=== PATIENT | female | born 1970 | race Caucasian/White ===

== ENCOUNTER 2018-01-02 16:02 | Emergency (ER) | payer MEDICARE, MEDICAID ==
[2018-01-02] MEDS ORDERED: Ibuprofen 800 MG TAB ONE (17:30)
--- NOTE | 2018-01-02 19:24 | ULT ---
RIGHT UPPER EXTREMITY VENOUS ULTRASOUND WITH DOPPLER: HISTORY: Three weeks of right arm pain. COMPARISON: None. TECHNIQUE: Bolaños-scale, color-flow, Doppler imaging, and spectral wave-form analysis was performed to the right u pper extremity venous system. FINDINGS: There is compressibility and flow in the internal jugular vein. There is patency in the subclavian v ein. There is compressibility and flow in the axillary vein, basilic vein, cephalic vein, radial vei n, ulnar vein, and brachial vein. IMPRESSION: No evidence of thrombus in the right upper extremity deep venous system. POS: [facility]
== END 2018-01-02 18:37 | disposition home or self-care (01) ==
LOC: ERS 16:02
DX: M79.621 Pain in right upper arm (principal); E11.9 Type 2 diabetes mellitus without complications; E66.9 Obesity, unspecified; J45.909 Unspecified asthma, uncomplicated; F31.9 Bipolar disorder, unspecified; F41.9 Anxiety disorder, unspecified; I10 Essential (primary) hypertension

== ENCOUNTER 2018-05-25 08:42 | Outpatient (CLI) | payer MEDICARE, MEDICAID | END 2018-05-25 08:43 | disposition home or self-care (01) | LOC: BICMAMMO 08:42 | PROVIDERS: ATTEND Family Medicine | DX: Z12.31 Encounter for screening mammogram for malignant neoplasm of breast (principal); R92.1 Mammographic calcification found on diagnostic imaging of breast; Z80.3 Family history of malignant neoplasm of breast | CPT/HCPCS: 77063; 77067 ==

== ENCOUNTER 2018-09-22 19:58 | Emergency (ER) | payer MEDICARE, MEDICAID ==
[2018-09-22 21:01] LABS: #Basophils 0.1 thou/uL (0.0-0.2); #Eosinphils 0.2 thou/uL (0.0-0.7); #Lymphocytes 3.7 thou/uL (1.20-3.40); #Monocytes 0.4 thou/uL (0.11-0.59); #Neutrophils 3.3 thou/uL (1.40-6.50); %Basophils 0.7 % (0.0-1.0); %Eosinophils 2.2 % (0.0-10.0); %Lymphocytes 48.2 % (21.0-51.0); %Monocytes 5.3 % (0.0-10.0); %Neutrophils 43.6 % (42.0-75.0); Hemoglobin 13.9 g/dL (12.0-16.0); Mean Corpuscular HGB CONC 33.4 g/dL (32.0-36.0); Mean Corpuscular Hemoglobin 28.7 pg (27.0-31.0); Mean Corpuscular Volume 85.9 fL (78.0-98.0); Platelet Count 317 thou/uL (130-400); Red Blood Cell (RBC) Count 4.83 mill/uL (4.20-5.40); White Blood Cell (WBC) Count 7.6 thou/uL (4.8-10.8)
[2018-09-22 21:30] LABS: ALT (SGPT) 17 U/L (8-55); AST (SGOT) 12 U/L (5-34); Albumin 3.8 g/dL (3.5-5.0); Alkaline Phosphatase 83 U/L (40-150); Anion Gap 14 mmol/L (10-20); BUN (Urea Nitrogen) 10 mg/dL (7.0-18.7); Bilirubin, Total 0.6 mg/dL (0.2-1.2); Calc. Creatinine Clearance 0 mL/min (70-130); Calcium 9.9 mg/dL (7.8-10.44); Carbon Dioxide 27 mmol/L (22-29); Chloride 104 mmol/L (98-107); Estimated GFR-MDRD Greater than 90; Globulin 3.6 g/dL (2.4-3.5); Glucose 112 mg/dL (70-105); Potassium 3.9 mmol/L (3.5-5.1); Protein, Total 7.4 g/dL (6.0-8.3); Sodium 141 mmol/L (136-145)
[2018-09-22 23:10] LABS: Bilirubin Negative (Negative); Blood, Urine Negative (Negative); Clarity CLOUDY (Clear); Glucose, Urine (Dipstick) Negative (Negative); Leukocyte Moderate (Negative); Nitrite Negative (Negative); Protein, Urine (Dipstick) Negative (Neg-Trace); Urobilinogen 0.2 mg/dL (0.2-1.0)
[2018-09-22 23:12] LABS: Bacteria/HPF None Seen HPF (None Seen); Hyaline Casts/LPF 7-10 HYALINE CAST LPF (0-3 Hyaline); Pathc Cast-AUWi Flag 2.18 (0-2.49)
== END 2018-09-23 00:10 | disposition home or self-care (01) ==
LOC: ERS 19:58
DX: E11.649 Type 2 diabetes mellitus with hypoglycemia without coma (principal); J45.909 Unspecified asthma, uncomplicated; F31.9 Bipolar disorder, unspecified; F41.9 Anxiety disorder, unspecified; E66.9 Obesity, unspecified; Z79.899 Other long term (current) drug therapy; Z79.84 Long term (current) use of oral hypoglycemic drugs
CPT/HCPCS: 36415; 36416; 80053; 81003; 81015; 85025; 99284

== ENCOUNTER 2018-10-31 13:16 | Emergency (ER) | payer MEDICARE, MEDICAID ==
[~2018-10-31 13:16] MED LIST: ISOVUE-370 76%-LOCM 1 ML ONE
[2018-10-31 14:07] LABS: #Eosinphils 0.1 thou/uL (0.0-0.7); #Lymphocytes 1.6 thou/uL (1.20-3.40); #Monocytes 0.3 thou/uL (0.11-0.59); #Neutrophils 6.3 thou/uL (1.40-6.50); %Basophils 0.3 % (0.0-1.0); %Eosinophils 1.1 % (0.0-10.0); %Lymphocytes 19.2 % (21.0-51.0); %Monocytes 3.5 % (0.0-10.0); %Neutrophils 75.9 % (42.0-75.0); Hemoglobin 14.4 g/dL (12.0-16.0); Mean Corpuscular HGB CONC 32.9 g/dL (32.0-36.0); Mean Corpuscular Hemoglobin 29.1 pg (27.0-31.0); Mean Corpuscular Volume 88.5 fL (78.0-98.0); Mean Platelet Volume 8.5 fL (7.4-10.4); Platelet Count 333 thou/uL (130-400); RBC Distribution Width 12.3 % (11.5-14.5); Red Blood Cell (RBC) Count 4.94 mill/uL (4.20-5.40); White Blood Cell (WBC) Count 8.2 thou/uL (4.8-10.8)
[2018-10-31 14:34] LABS: ALT (SGPT) 15 U/L (8-55); AST (SGOT) 10 U/L (5-34); Albumin 3.7 g/dL (3.5-5.0); Alkaline Phosphatase 87 U/L (40-150); Anion Gap 13 mmol/L (10-20); BUN (Urea Nitrogen) 15 mg/dL (7.0-18.7); Bilirubin, Total 0.7 mg/dL (0.2-1.2); Calc. Creatinine Clearance 0 mL/min (70-130); Calcium 8.9 mg/dL (7.8-10.44); Carbon Dioxide 22 mmol/L (22-29); Chloride 106 mmol/L (98-107); Estimated GFR-MDRD Greater than 90; Globulin 3.3 g/dL (2.4-3.5); Glucose 184 mg/dL (70-105); Sodium 137 mmol/L (136-145)
[2018-10-31] MEDS ORDERED: Ondansetron ODT 4 MG TAB ONE (16:10)
[2018-10-31 16:24] LABS: Bilirubin Negative (Negative); Blood, Urine Negative (Negative); Clarity CLEAR (Clear); Glucose, Urine (Dipstick) 100 mg/dL (Negative); Leukocyte Negative (Negative); Nitrite Negative (Negative); Protein, Urine (Dipstick) Negative (Neg-Trace)
[2018-10-31 16:27] LABS: Pregnancy Test - Urine (BHCG) Negative (Negative); Pregu Control Background? CLEAR/WHITE (CLR/WHITE); Pregu Control Bar Appear? YES (CONTROL BAR)
[2018-10-31] MEDS ORDERED: Ondansetron PF 4 MG/2 ML Vial ONE (17:00)
[2018-10-31] MEDS ORDERED: Ketorolac Tromethamine 30 MG/ML VIAL ONE (17:30)
--- NOTE | 2018-10-31 17:36 | CT ---
CT ABDOMEN AND PELVIS WITH IV CONTRAST 10/31/18 HISTORY: Nausea, vomiting and diarrhea in a patient with left lower quadrant abdominal pain. COMPARISON: None available. FINDINGS: The lung bases, liver, spleen, pancreas, bilateral adrenal glands, kidneys, abdominal aorta, urinary bladder, uterus and left adnexal structures demonstrate a normal CT appearance. A few low density str uctures are seen within the right ovary. The largest measuring approximately 2.2 cm likely related to dominant follicles and/or small cysts. The appendix is visualized and normal caliber. There is stranding seen in the region of the root of the mesentery which is with few nonenlarged lym ph nodes present. 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 No enlarged lymph nodes are seen by CT size criteria. There is no free fluid or fluid collection seen in the abdomen or pelvis. The osseous structures demonstrate a normal CT appearance. IMPRESSION: 1. No acute findings are seen in the abdomen or pelvis. 2. No CT evidence of appendicitis. 3. Mild haziness and stranding within the central mesentery which could potentially be attributa ble to mesenteric panniculitis. 4. Dominant follicles and/or small cysts right ovary. POS: [facility]
--- NOTE | 2018-11-04 15:32 | EKG ---
Test Reason : Blood Pressure : / mmHG Vent. Rate : 092 BPM Atrial Rate : 092 BPM P-R Int : 166 ms QRS Dur : 082 ms QT Int : 350 ms P-R-T Axes : 040 -12 022 degrees QTc Int : 432 ms Normal sinus rhythm Low voltage QRS Septal infarct , age undetermined No STEMI Abnormal ECG Confirmed by YEVGENIY Willis, JULIA ([id number]), newspaper editor AKANKSHA TYSON ([id number]) on 11/04/2018 3:31:49 PM Referred By: Confirmed By:JULIA VUONG M.D.
== END 2018-10-31 17:57 | disposition home or self-care (01) ==
LOC: ERS 13:16
DX: K65.4 Sclerosing mesenteritis (principal); N83.201 Unspecified ovarian cyst, right side; E11.9 Type 2 diabetes mellitus without complications; E66.9 Obesity, unspecified; J45.909 Unspecified asthma, uncomplicated; F31.9 Bipolar disorder, unspecified; F41.9 Anxiety disorder, unspecified; Z79.84 Long term (current) use of oral hypoglycemic drugs; Z79.899 Other long term (current) drug therapy
CPT/HCPCS: 36415; 36416; 74177; 80053; 81003; 81025; 83690; 85025; 93005; 96361; 96374; 96375; J1885; J2405; Q0162; Q9966

== ENCOUNTER 2018-11-13 10:37 | Outpatient (CLI) | payer MEDICARE, OTHER ==
--- NOTE | 2018-11-13 12:39 | ULT ---
PELVIC ULTRASOUND WITH DOPPLER TRANSABDOMINAL AND TRANSVAGINAL: 11/13/2018 PROVIDED CLINICAL HISTORY: Right lower quadrant pain. CORRELATION: CT examination dated 10/31/2018. FINDINGS: The uterus measures about 11.1 x 4.1 x 4.2 cm and demonstrates an unremarkable sonographic appearance to the uterine myometrium. There is endometrial thickening measuring up to 1.8 cm with a somewhat h eterogeneous appearance to the contents of the uterine endometrium. The right ovary measures about 3.4 x 2.7 x 2.2 cm and demonstrates a simple appearing 2.1 cm cyst. The left ovary is not identified. Color Doppler and spectral analysis of the right ovarian waveform demonstrates normal flow. There is no evidence for significant free pelvic fluid. IMPRESSION: 1. Thickened and somewhat heterogeneous appearance to the uterine endometrium. This is overall nons pecific, particularly in a premenopausal patient. Consider sonohysterography or tissue sampling, as clinically indicated. 2. A 2 cm simple-appearing right ovarian cyst, presumably physiologic. POS: [facility]
== END 2018-11-13 10:38 | disposition home or self-care (01) ==
LOC: BICULT 10:37
PROVIDERS: ATTEND Family Medicine
DX: N83.291 Other ovarian cyst, right side (principal); R93.89 Abnormal findings on diagnostic imaging of other specified body structures
CPT/HCPCS: 76856

== ENCOUNTER 2018-12-26 10:30 | Emergency (ER) | payer MEDICARE, OTHER | END 2018-12-26 12:15 | disposition home or self-care (01) | LOC: ERS 10:30 | DX: J04.0 Acute laryngitis (principal); E11.9 Type 2 diabetes mellitus without complications; E66.9 Obesity, unspecified; J45.909 Unspecified asthma, uncomplicated; F41.9 Anxiety disorder, unspecified; F31.9 Bipolar disorder, unspecified; Z79.899 Other long term (current) drug therapy; Z79.84 Long term (current) use of oral hypoglycemic drugs | CPT/HCPCS: 87081; 87430; 99283 ==

== ENCOUNTER 2019-05-11 11:03 | Outpatient (CLI) | payer MEDICARE, OTHER ==
--- NOTE | 2019-05-11 12:14 | MRI ---
MR of the rightankle without contrast INDICATION: Concern for calcaneofibular ligament sprain TECHNIQUE: T1, T2 fat sat, PD fat sat axial in addition to sagittal T1, T2 fat sat and coronal PD fat sat sequences were obtained of the rightankle. COMPARISON: Right ankle radiograph dated May 07, 2019 FINDINGS: Ligaments: ATFL: There is diffuse thickening suspicious for a chronic partial thickness tear. PTFL: Intact. Calcaneofibular ligament: There is moderate thickening of the calcaneal fibular ligament suspicious f or sequela of a chronic partial thickness sprain. Syndesmotic ligaments: Intact. Deltoid ligament: Intact. Spring ligament: Intact. Visualized Lisfranc ligament: Intact. Tendons: Peroneal tendons: There is a partial-thickness split tear of the peroneus brevis originating posterio r to the lateral malleolus reconstituting just distal to the lateral retinaculum. The peroneus longus is intact. There is mild peroneal tenosynovitis. Posterior tibialis: Intact without tenosynovitis. Flexor digitorum longus: Intact without tenosynovitis. Flexor hallucis longus: Intact without tenosynovitis. Extensor hallucis longus: Intact without tenosynovitis. Tibialis anterior: Intact without tenosynovitis. Extensor digitorum longus: Intact without tenosynovitis. Achilles tendon There is mild Achilles tendinosis with mild Achilles paratenonitis. Tibiotalar joint: Talar Dome: Intact without evidence of osteochondral defect Joint effusion: None. Subtalar joint: Intact. Bones: There is enthesopathic change off of the posterior plantar calcaneus. There are scattered oste oarthrosis of the right midfoot. Sinus Tarsi: Normal signal intensity. Plantar fascia: Normal appearing. Visualized intrinsic foot musculature: Normal appearing.. IMPRESSION: 1. Partial-thickness split tear of the peroneal brevis with peroneal tenosynovitis. 2. Chronic partial-thickness sprain of the ATFL and calcaneofibular ligaments. 3. Mild Achilles tendinosis with mild Achilles paratenonitis.
== END 2019-05-11 11:04 | disposition home or self-care (01) ==
LOC: TBSIIMAG 11:03
PROVIDERS: ATTEND Family Medicine
DX: S93.411A Sprain of calcaneofibular ligament of right ankle, initial encounter (principal); M67.873 Other specified disorders of tendon, right ankle and foot

== ENCOUNTER 2019-11-08 08:36 | Emergency (ER) | payer MEDICARE, OTHER ==
--- NOTE | 2019-11-08 09:07 | RAD ---
EXAM: CHEST ONE VIEW HISTORY: Dyspnea. Shortness of breath for 3 days. COMPARISON: 06/30/2014 FINDINGS: The cardiac silhouette and pulmonary vasculature is within normal limits. The lungs are clear. The os seous structures are intact. Chest is stable compared to prior exam. IMPRESSION: No acute cardiopulmonary process.
[2019-11-08] MEDS ORDERED: predniSONE 20 MG TAB ONE (09:08)
[2019-11-08 09:32] LABS: #Basophils 0.1 thou/uL (0.0-0.2); #Eosinphils 0.3 thou/uL (0.0-0.7); #Lymphocytes 2.8 thou/uL (1.20-3.40); #Monocytes 0.4 thou/uL (0.11-0.59); #Neutrophils 3.7 thou/uL (1.40-6.50); %Basophils 1.2 % (0.0-1.0); %Eosinophils 4.3 % (0.0-10.0); %Lymphocytes 38.5 % (21.0-51.0); %Monocytes 5.6 % (0.0-10.0); %Neutrophils 50.5 % (42.0-75.0); BHCG - Serum Negative (NEGATIVE); Mean Corpuscular HGB CONC 33.6 g/dL (32.0-36.0); Mean Corpuscular Hemoglobin 29.2 pg (27.0-31.0); Mean Corpuscular Volume 86.9 fL (78.0-98.0); Mean Platelet Volume 9.3 fL (7.4-10.4); Platelet Count 259 thou/uL (130-400); Pregs Control Background? CLEAR/WHITE (CLR/WHITE); Pregs Control Bar Appear? YES (CONTROL BAR); RBC Distribution Width 13.2 % (11.5-14.5); White Blood Cell (WBC) Count 7.3 thou/uL (4.8-10.8)
[2019-11-08 09:55] LABS: ALT (SGPT) 19 U/L (8-55); AST (SGOT) 10 U/L (5-34); Albumin 3.8 g/dL (3.5-5.0); Alkaline Phosphatase 92 U/L (40-110); Anion Gap 14 mmol/L (10-20); BUN (Urea Nitrogen) 11 mg/dL (7.0-18.7); Bilirubin, Total 0.4 mg/dL (0.2-1.2); Calc. Creatinine Clearance 0 mL/min (70-130); Calcium 9.4 mg/dL (7.8-10.44); Carbon Dioxide 22 mmol/L (22-29); Chloride 102 mmol/L (98-107); Estimated GFR-MDRD 88; Globulin 3.7 g/dL (2.4-3.5); Glucose 339 mg/dL (70-105); Protein, Total 7.5 g/dL (6.0-8.3); Sodium 134 mmol/L (136-145)
== END 2019-11-08 11:00 | disposition home or self-care (01) ==
LOC: ERS 08:36
DX: J20.9 Acute bronchitis, unspecified (principal); E11.9 Type 2 diabetes mellitus without complications; E66.9 Obesity, unspecified; J45.909 Unspecified asthma, uncomplicated; F31.9 Bipolar disorder, unspecified; F41.9 Anxiety disorder, unspecified
CPT/HCPCS: 36415; 71045; 80053; 84484; 84703; 85025; 93005; 94640; J7512; J7620

== ENCOUNTER 2021-08-10 07:06 | Emergency (ER) | payer MEDICARE, OTHER | END 2021-08-10 07:28 | disposition home or self-care (01) | LOC: ERS 07:06 | DX: M25.531 Pain in right wrist (principal); E11.9 Type 2 diabetes mellitus without complications; J45.909 Unspecified asthma, uncomplicated; E66.9 Obesity, unspecified | CPT/HCPCS: 99281 ==

== ENCOUNTER 2021-08-24 07:34 | Outpatient (CLI) | payer MEDICARE, OTHER | END 2021-08-24 07:35 | disposition home or self-care (01) | LOC: BICRAD 07:34 | PROVIDERS: ATTEND Student in an Organized Health Care Education/Training Program | DX: M25.531 Pain in right wrist (principal) ==

== ENCOUNTER 2021-11-02 19:30 | Emergency (ER) | payer MEDICARE, OTHER ==
[2021-11-02] MEDS ORDERED: Ketorolac Tromethamine 30 MG/ML VIAL ONE (20:01)
[2021-11-02] MEDS ORDERED: Morphine 4 MG/ML VIAL ONE (20:01)
== END 2021-11-02 20:40 | disposition home or self-care (01) ==
LOC: ERS 19:30
DX: M54.41 Lumbago with sciatica, right side (principal); E11.9 Type 2 diabetes mellitus without complications; Z79.899 Other long term (current) drug therapy
CPT/HCPCS: 96372; 99283; J1885; J2270

== ENCOUNTER 2022-07-10 03:19 | Inpatient (IN) | payer OTHER ==
[2022-07-10] MEDS ORDERED: Vancomycin 1 GM/200 ML (PREMIX) BAG ONE (03:44)
[2022-07-10] MEDS ORDERED: Cefepime 2 GM VIAL ONE (03:44)
[2022-07-10 04:03] LABS: Hemoglobin 13.8 g/dL (12.0-16.0); Mean Corpuscular Hemoglobin 28.6 pg (27.0-31.0); Mean Corpuscular Volume 92.1 fl (78.0-98.0); Mean Platelet Volume 8.5 fL (7.4-10.4); Platelet Count 454 thou/uL (130-400); RBC Distribution Width 12.7 % (11.5-14.5); Red Blood Cell (RBC) Count 4.85 mill/uL (4.20-5.40); White Blood Cell (WBC) Count 23.6 thou/uL (4.8-10.8)
[2022-07-10 04:12] LABS: Analyzer IN Cardio ER; Base Excess -23.2 mEq/L (-2.0 to +3.0); Calcium, Ionized (venous) 1.21 mmol/L (1.16-1.32); Chloride (VBG) 105 mmol/L (98-106); Sodium 132.6 mmol/L (133-146)
[2022-07-10 04:13] LABS: pH (venous) 7.03 (7.32-7.43)
[2022-07-10 04:14] LABS: Actual Bicarbonate (HCO3v) 6 mEq/L (22-28)
[2022-07-10 04:16] LABS: ALT (SGPT) 16 U/L (8-55); AST (SGOT) 15 U/L (5-34); Albumin 3.8 g/dL (3.5-5.0); Alkaline Phosphatase 141 U/L (40-110); BUN (Urea Nitrogen) 8 mg/dL (7.0-18.7); Bilirubin, Total 0.4 mg/dL (0.2-1.2); Calc. Creatinine Clearance 0 mL/min (70-130); Calcium 10.2 mg/dL (7.8-10.44); Chloride 105 mmol/L (98-107); Estimated GFR 69; Globulin 5.5 g/dL (2.4-3.5); Glucose 274 mg/dL (70-105); Potassium 4.2 mmol/L (3.5-5.1); Protein, Total 9.3 g/dL (6.0-8.3); Sodium 131 mmol/L (136-145)
[2022-07-10 04:22] LABS: Carbon Dioxide Less than 8 mmol/L (22-29)
[2022-07-10 04:38] LABS: Band 12 % (5-11); Lymphocytes 22 % (21-51); MDiff Complete? YES; Monocytes 4 % (0-10); Neutrophil 59 % (42-75); Nucleated RBC 1 % (0); Platelet Morphology Comment Appears Increased; RBC Morphology Normal; Reactive Lymphocytes 3 % (0-10)
[2022-07-10] MEDS ORDERED: INSULIN REGULAR IN 0.9 % NACL 100 UNIT/100 ML BAG ONE (04:42)
[2022-07-10] MEDS ORDERED: Ondansetron PF 4 MG/2 ML Vial ONE (04:48)
[2022-07-10] MEDS ORDERED: Morphine 4 MG/ML VIAL ONE (04:48)
[2022-07-10 05:18] LABS: Magnesium 2.1 mg/dL (1.6-2.6); Phosphorus 4.5 mg/dL (2.3-4.7)
[2022-07-10 06:31] LABS: Actual Bicarbonate (HCO3v) 6 mEq/L (22-28); Analyzer IN Cardio ER; Base Excess -23.2 mEq/L (-2.0 to +3.0); Calcium, Ionized (venous) 1.21 mmol/L (1.16-1.32); Chloride (VBG) 105 mmol/L (98-106); Sodium 132.6 mmol/L (133-146); pH (venous) 7.03 (7.32-7.43)
[2022-07-10] MEDS ORDERED: NS 0.9% w/ 20 MEQ KCL 1,000 ML ONE (06:56)
[2022-07-10 07:31] LABS: Bacteria/HPF None Seen HPF (None Seen); Bilirubin Negative (Negative); Blood, Urine 3+ (Negative); Clarity Clear (Clear); Glucose, Urine (Dipstick) Greater than 1000 mg/dL (Negative); Ketone, Urine Greater than 150 mg/dL (Negative); Leukocyte 250 Leu/uL (Negative); Nitrite Negative (Negative); Protein, Urine (Dipstick) 30 mg/dL (Neg-Trace); Specific Gravity, Urine 1.039 (1.002-1.036); Urobilinogen Normal mg/dL (Less than 2)
[2022-07-10] MEDS ORDERED: Sodium Chloride 0.9% 1,000 ML IV PRN ×4 (08:31)
[2022-07-10] MEDS ORDERED: Dextrose 5 %-0.45 % NaCl 1,000 ML IV PRN (08:31)
[2022-07-10] MEDS ORDERED: NS 0.9% w/ 20 MEQ KCL 1,000 ML IV PRN ×2 (08:31)
[2022-07-10] MEDS ORDERED: HUMULIN R 100 UNITS in Sodium Chloride 0.9% 100 ML IVPB SCH (08:45)
[2022-07-10] MEDS ORDERED: Cefepime 1 GM in Sodium Chloride 0.9% 100 ML IVPB SCH (09:00)
[2022-07-10] MEDS ORDERED: Vancomycin 1 GM in Premix Bag 1 BAG IVPB SCH (09:00)
[2022-07-10] MEDS ORDERED: Bupivacaine/Epinephrine 0.25% 30 ML VIAL ONE (10:01)
[2022-07-10] MEDS ORDERED: SUGAMMADEX SODIUM 200 MG/2 ML VIAL ONE (10:09)
[2022-07-10] MEDS ORDERED: fentaNYL PF 100 MCG/2 ML SYRINGE ONE (10:09)
[2022-07-10] MEDS ORDERED: Iopamidol-370 76% 500 ML 1 ML ONE (10:30)
[2022-07-10] MEDS ORDERED: PROPOFOL 200 MG/20 ML VIAL ONE (11:07)
[2022-07-10] MEDS ORDERED: Succinylcholine 200 MG/10 ml SYRINGE FS ONE (11:07)
[2022-07-10] MEDS ORDERED: Rocuronium Bromide 10 MG/ML (10ML VIAL) ONE (11:07)
[2022-07-10] MEDS ORDERED: Promethazine HCl 25 MG/ML VIAL IVPB PRN (11:49)
[2022-07-10] MEDS ORDERED: Ondansetron HCl/PF 4 MG/2 ML Vial IVP PRN (11:49)
[2022-07-10] MEDS ORDERED: Promethazine HCl 25 MG/ML VIAL IM PRN (11:49)
[2022-07-10] MEDS ORDERED: HYDROcodone/Acetaminophen 7.5/325 mg Tablet PO PRN (11:58)
[2022-07-10] MEDS ORDERED: FENTANYL 50 MCG/ML 1 ML VIAL ONE (12:15)
[2022-07-10] MEDS: Electrolyte Replacement Protocol IVPB SCH (13:15)
[2022-07-10] MEDS: Morphine 4 MG/ML VIAL SLOW IVP PRN (13:24)
[2022-07-10] MEDS ORDERED: Vancomycin 1.5 GRAM/300 ML BAG 1.5 GM in Premix Bag 1 BAG IVPB SCH (13:30)
[2022-07-10] MEDS: metroNIDAZOLE 500 MG in Premix Bag 1 BAG IVPB SCH ×2 (13:42→22:30)
[2022-07-10 13:44] LABS: BUN (Urea Nitrogen) 8 mg/dL (7.0-18.7); Calc. Creatinine Clearance 139 mL/min (70-130); Calcium 9.7 mg/dL (7.8-10.44); Chloride 111 mmol/L (98-107); Estimated GFR 90; Glucose 238 mg/dL (70-105); Potassium 4.6 mmol/L (3.5-5.1); Sodium 133 mmol/L (136-145)
[2022-07-10 13:57] LABS: Carbon Dioxide Less than 8 mmol/L (22-29)
[2022-07-10] MEDS: D5 1/2 NS w/20 mEq KCL 1,000 ML IV PRN ×2 (14:48→22:56)
[2022-07-10] MEDS: Cefepime 2 GM in Sodium Chloride 0.9% 100 ML IVPB SCH (16:52)
[2022-07-10 17:40] LABS: Anion Gap 13 mmol/L (10-20); BUN (Urea Nitrogen) 7 mg/dL (7.0-18.7); Calc. Creatinine Clearance 153 mL/min (70-130); Calcium 8.8 mg/dL (7.8-10.44); Chloride 115 mmol/L (98-107); Estimated GFR 100; Glucose 249 mg/dL (70-105); Potassium 3.8 mmol/L (3.5-5.1); Sodium 133 mmol/L (136-145)
[2022-07-10 17:44] LABS: Carbon Dioxide 9 mmol/L (22-29)
[2022-07-10 22:05] LABS: Anion Gap 11 mmol/L (10-20); BUN (Urea Nitrogen) 7 mg/dL (7.0-18.7); Calc. Creatinine Clearance 145 mL/min (70-130); Calcium 8.7 mg/dL (7.8-10.44); Carbon Dioxide 14 mmol/L (22-29); Chloride 113 mmol/L (98-107); Estimated GFR 94; Glucose 255 mg/dL (70-105); Potassium 3.6 mmol/L (3.5-5.1); Sodium 134 mmol/L (136-145)
[2022-07-11] MEDS: HYDROcodone/Acetaminophen 7.5/325 mg Tablet PO PRN ×2 (00:31→22:53)
[2022-07-11] MEDS: D5 1/2 NS w/20 mEq KCL 1,000 ML IV PRN ×4 (03:30→16:05)
[2022-07-11] MEDS: Cefepime 2 GM in Sodium Chloride 0.9% 100 ML IVPB SCH ×2 (03:36→17:47)
[2022-07-11 04:27] LABS: Anion Gap 10 mmol/L (10-20); BUN (Urea Nitrogen) 5 mg/dL (7.0-18.7); Calc. Creatinine Clearance 186 mL/min (70-130); Calcium 8.3 mg/dL (7.8-10.44); Carbon Dioxide 13 mmol/L (22-29); Chloride 115 mmol/L (98-107); Estimated GFR 109; Glucose 168 mg/dL (70-105); Potassium 3.4 mmol/L (3.5-5.1); Sodium 135 mmol/L (136-145)
[2022-07-11] MEDS: metroNIDAZOLE 500 MG in Premix Bag 1 BAG IVPB SCH ×3 (06:41→22:51)
[2022-07-11] MEDS: Potassium Chloride 20 MEQ in Premix Bag 1 BAG IVPB SCH ×2 (06:57→09:28)
[2022-07-11] MEDS: Morphine 4 MG/ML VIAL SLOW IVP PRN ×2 (07:34→10:12)
[2022-07-11 08:43] LABS: #Basophils 0.1 thou/uL (0.0-0.2); #Eosinphils 0.1 thou/uL (0.0-0.7); #Lymphocytes 1.7 thou/uL (1.20-3.40); #Monocytes 0.6 thou/uL (0.11-0.59); #Neutrophils 10.1 thou/uL (1.40-6.50); %Basophils 0.5 % (0.0-1.0); %Lymphocytes 13.2 % (21.0-51.0); %Monocytes 4.4 % (0.0-10.0); %Neutrophils 80.8 % (42.0-75.0); Hemoglobin 11.5 g/dL (12.0-16.0); Mean Corpuscular HGB CONC 32.5 g/dL (32.0-36.0); Mean Corpuscular Hemoglobin 29.8 pg (27.0-31.0); Mean Corpuscular Volume 91.7 fl (78.0-98.0); Mean Platelet Volume 7.8 fL (7.4-10.4); Platelet Count 349 thou/uL (130-400); RBC Distribution Width 12.8 % (11.5-14.5); Red Blood Cell (RBC) Count 3.87 mill/uL (4.20-5.40); White Blood Cell (WBC) Count 12.6 thou/uL (4.8-10.8)
[2022-07-11 08:48] LABS: Anion Gap 11 mmol/L (10-20); BUN (Urea Nitrogen) 4 mg/dL (7.0-18.7); Calc. Creatinine Clearance 190 mL/min (70-130); Calcium 8.2 mg/dL (7.8-10.44); Carbon Dioxide 12 mmol/L (22-29); Chloride 114 mmol/L (98-107); Estimated GFR 109; Glucose 197 mg/dL (70-105); Potassium 3.9 mmol/L (3.5-5.1); Sodium 133 mmol/L (136-145)
[2022-07-11] MEDS ORDERED: FLU VACC QS2022-23(6MOS UP)/PF 60 MCG/0.5 ML SYRINGE IM ONE (09:00)
[2022-07-11] MEDS: Electrolyte Replacement Protocol IVPB SCH (09:19)
[2022-07-11] MEDS: VANCOMYCIN 2 GRAM/500 ML BAG 2 GM in Premix Bag 1 BAG IVPB SCH (13:56)
[2022-07-11] MEDS: guaiFENesin 200 MG TAB PO PRN (14:06)
[2022-07-11 15:06] LABS: Anion Gap 12 mmol/L (10-20); BUN (Urea Nitrogen) 5 mg/dL (7.0-18.7); Calc. Creatinine Clearance 193 mL/min (70-130); Calcium 8.2 mg/dL (7.8-10.44); Carbon Dioxide 12 mmol/L (22-29); Chloride 112 mmol/L (98-107); Estimated GFR 109; Glucose 283 mg/dL (70-105); Potassium 3.8 mmol/L (3.5-5.1); Sodium 132 mmol/L (136-145)
[2022-07-11] MEDS ORDERED: Dextrose 50% Abboject 50 ML SYRINGE SLOW IVP PRN (17:33)
[2022-07-11] MEDS ORDERED: Dextrose 5% in Water 1,000 ML IV PRN (17:33)
[2022-07-11] MEDS ORDERED: Insulin Glargine 30 UNITS/0.3 ML VIAL SC SCH (17:45)
[2022-07-11] MEDS: Sodium Chloride 0.9% 1,000 ML IV SCH (18:42)
[2022-07-11] MEDS: HumaLOG 300 UNITS/3 ML VIAL SC PRN (22:55)
[2022-07-12 04:11] LABS: Anion Gap 13 mmol/L (10-20); BUN (Urea Nitrogen) 4 mg/dL (7.0-18.7); Calc. Creatinine Clearance 196 mL/min (70-130); Calcium 8.6 mg/dL (7.8-10.44); Carbon Dioxide 14 mmol/L (22-29); Chloride 114 mmol/L (98-107); Estimated GFR 110; Glucose 215 mg/dL (70-105); Potassium 3.6 mmol/L (3.5-5.1); Sodium 137 mmol/L (136-145)
[2022-07-12] MEDS: Cefepime 2 GM in Sodium Chloride 0.9% 100 ML IVPB SCH ×2 (04:12→15:43)
[2022-07-12 04:20] LABS: Band 8 % (5-11); Eosinophils 1 % (0-10); Hemoglobin 11.2 g/dL (12.0-16.0); Hypochromia SLIGHT = 6-15 cells (100X) (0-5/hpf); Lymphocytes 32 % (21-51); MDiff Complete? YES; Mean Corpuscular HGB CONC 31.8 g/dL (32.0-36.0); Mean Corpuscular Hemoglobin 28.5 pg (27.0-31.0); Mean Corpuscular Volume 89.5 fl (78.0-98.0); Monocytes 5 % (0-10); Neutrophil 53 % (42-75); Platelet Count 342 thou/uL (130-400); Platelet Morphology Comment Appears Adequate; RBC Distribution Width 13.1 % (11.5-14.5); Reactive Lymphocytes 1 % (0-10); Red Blood Cell (RBC) Count 3.95 mill/uL (4.20-5.40); White Blood Cell (WBC) Count 11.4 thou/uL (4.8-10.8)
[2022-07-12] MEDS: HumaLOG 300 UNITS/3 ML VIAL SC PRN ×2 (06:20→14:05)
[2022-07-12] MEDS: metroNIDAZOLE 500 MG in Premix Bag 1 BAG IVPB SCH ×3 (06:20→21:07)
[2022-07-12] MEDS: Electrolyte Replacement Protocol IVPB SCH (09:33)
[2022-07-12] MEDS: Sodium Chloride 0.9% 1,000 ML IV SCH (09:33)
[2022-07-12] MEDS: guaiFENesin 200 MG TAB PO PRN (09:54)
[2022-07-12] MEDS: Morphine 4 MG/ML VIAL SLOW IVP PRN (12:10)
[2022-07-12] MEDS: Ondansetron PF 4 MG/2 ML Vial IVP PRN (12:17)
[2022-07-12 13:45] LABS: Vancomycin, Trough 4.4 ug/mL
[2022-07-12] MEDS: VANCOMYCIN 2 GRAM/500 ML BAG 2 GM in Premix Bag 1 BAG IVPB SCH (14:36)
[2022-07-12] MEDS: VANCOMYCIN 1.75 GM/500 ML BAG 1.75 GM in Premix Bag 1 BAG IVPB SCH (15:43)
[2022-07-12] MEDS ORDERED: Insulin Glargine 30 UNITS/0.3 ML VIAL SC SCH ×2 (21:00)
[2022-07-12] MEDS: HYDROcodone/Acetaminophen 7.5/325 mg Tablet PO PRN (21:08)
[2022-07-13] MEDS: VANCOMYCIN 1.75 GM/500 ML BAG 1.75 GM in Premix Bag 1 BAG IVPB SCH ×2 (03:09→17:39)
[2022-07-13] MEDS: Cefepime 2 GM in Sodium Chloride 0.9% 100 ML IVPB SCH ×2 (05:17→15:08)
[2022-07-13] MEDS: HumaLOG 300 UNITS/3 ML VIAL SC PRN ×4 (05:17→21:24)
[2022-07-13] MEDS: metroNIDAZOLE 500 MG in Premix Bag 1 BAG IVPB SCH ×5 (06:11→23:35)
[2022-07-13] MEDS: Morphine 4 MG/ML VIAL SLOW IVP PRN ×2 (06:11→11:03)
[2022-07-13 06:40] LABS: Anion Gap 10 mmol/L (10-20); BUN (Urea Nitrogen) 5 mg/dL (7.0-18.7); Calc. Creatinine Clearance 201 mL/min (70-130); Calcium 8.1 mg/dL (7.8-10.44); Carbon Dioxide 22 mmol/L (22-29); Chloride 107 mmol/L (98-107); Estimated GFR 110; Glucose 240 mg/dL (70-105); Sodium 136 mmol/L (136-145)
[2022-07-13 07:28] LABS: Hemoglobin 10.5 g/dL (12.0-16.0); Mean Corpuscular HGB CONC 32.3 g/dL (32.0-36.0); Mean Corpuscular Hemoglobin 28.9 pg (27.0-31.0); Mean Corpuscular Volume 89.6 fl (78.0-98.0); Mean Platelet Volume 8.1 fL (7.4-10.4); Platelet Count 362 thou/uL (130-400); Red Blood Cell (RBC) Count 3.64 mill/uL (4.20-5.40); White Blood Cell (WBC) Count 8.8 thou/uL (4.8-10.8)
[2022-07-13] MEDS ORDERED: Potassium Chloride 20 MEQ TAB PO SCH (08:00)
[2022-07-13 08:34] LABS: Band 11 % (5-11); Eosinophils 8 % (0-10); Lymphocytes 29 % (21-51); MDiff Complete? YES; Monocytes 5 % (0-10); Myelocyte 4 % (0-0); Neutrophil 40 % (42-75); Nucleated RBC 2 % (0); Platelet Morphology Comment Appears Adequate; Polychromasia SLIGHT = 2-3 cells (100X) (0-2/hpf); Reactive Lymphocytes 3 % (0-10)
[2022-07-13] MEDS: Electrolyte Replacement Protocol IVPB SCH (08:47)
[2022-07-13] MEDS: Ondansetron PF 4 MG/2 ML Vial IVP PRN (11:08)
[2022-07-13] MEDS ORDERED: Insulin Glargine 30 UNITS/0.3 ML VIAL SC SCH (13:45)
[2022-07-13 14:39] LABS: Vancomycin, Trough 13.4 ug/mL
[2022-07-13] MEDS ORDERED: VANCOMYCIN 1.75 GM/500 ML BAG 1.75 GM in Premix Bag 1 BAG IVPB SCH (16:00)
[2022-07-13] MEDS: Insulin Glargine 30 UNITS/0.3 ML VIAL SC SCH (21:24)
[2022-07-14] MEDS: Cefepime 2 GM in Sodium Chloride 0.9% 100 ML IVPB SCH (04:28)
[2022-07-14] MEDS: VANCOMYCIN 1.75 GM/500 ML BAG 1.75 GM in Premix Bag 1 BAG IVPB SCH (05:53)
[2022-07-14] MEDS: Calcium Carbonate 500 MG ChewTAB PO PRN ×2 (06:47→17:25)
[2022-07-14 07:36] LABS: Anion Gap 9 mmol/L (10-20); BUN (Urea Nitrogen) 5 mg/dL (7.0-18.7); Calc. Creatinine Clearance 208 mL/min (70-130); Calcium 8.1 mg/dL (7.8-10.44); Carbon Dioxide 25 mmol/L (22-29); Chloride 108 mmol/L (98-107); Estimated GFR 111; Glucose 179 mg/dL (70-105); Sodium 139 mmol/L (136-145)
[2022-07-14] MEDS ORDERED: Potassium Bicarbonate/Cit Ac 20 MEQ TAB PO SCH (08:00)
[2022-07-14] MEDS ORDERED: Potassium Chloride 20 MEQ TAB PO SCH (08:00)
[2022-07-14] MEDS: Insulin Glargine 30 UNITS/0.3 ML VIAL SC SCH ×2 (08:19→20:52)
[2022-07-14] MEDS: Ondansetron PF 4 MG/2 ML Vial IVP PRN ×2 (08:19→17:26)
[2022-07-14] MEDS: Electrolyte Replacement Protocol IVPB SCH (08:20)
[2022-07-14] MEDS: metroNIDAZOLE 500 MG in Premix Bag 1 BAG IVPB SCH (08:20)
[2022-07-14] MEDS ORDERED: Polyethylene Glycol 3350 17 GM Packet PO SCH (09:30)
[2022-07-14] MEDS: Morphine 4 MG/ML VIAL SLOW IVP PRN (09:35)
[2022-07-14] MEDS: HumaLOG 300 UNITS/3 ML VIAL SC PRN ×2 (11:56→17:26)
[2022-07-14] MEDS ORDERED: Moisturizing Cream (Eucerin) 113 GM JAR TOP PRN (12:15)
[2022-07-14] MEDS ORDERED: Bisacodyl 10 MG SUPP PR PRN (12:15)
[2022-07-14] MEDS ORDERED: Labetalol HCl 100 MG/20 ML VIAL SLOW IVP PRN (12:15)
[2022-07-14] MEDS ORDERED: hydrALAZINE 20 MG/ML VIAL SLOW IVP PRN (12:15)
[2022-07-14] MEDS ORDERED: Artificial Tear Sol 15 ML BOT EA EYE PRN (12:15)
[2022-07-14] MEDS: Ampicillin/Sulbactam 3 GM in Sodium Chloride 0.9% 100 ML IVPB SCH ×2 (14:28→20:53)
[2022-07-14] MEDS: D5 1/2 NS w/20 mEq KCL 1,000 ML IV SCH (14:28)
[2022-07-14] MEDS: Senokot S 8.6-50 MG TAB PO PRN (17:25)
[2022-07-15] MEDS: Ampicillin/Sulbactam 3 GM in Sodium Chloride 0.9% 100 ML IVPB SCH ×4 (01:43→20:16)
[2022-07-15 06:57] LABS: Anion Gap 9 mmol/L (10-20); BUN (Urea Nitrogen) 4 mg/dL (7.0-18.7); Calc. Creatinine Clearance 127 mL/min (70-130); Calcium 8.3 mg/dL (7.8-10.44); Carbon Dioxide 26 mmol/L (22-29); Chloride 105 mmol/L (98-107); Estimated GFR 112; Glucose 181 mg/dL (70-105); Potassium 3.2 mmol/L (3.5-5.1); Sodium 137 mmol/L (136-145)
[2022-07-15] MEDS ORDERED: Potassium Chloride 20 MEQ TAB PO SCH (08:00)
[2022-07-15] MEDS: Insulin Glargine 30 UNITS/0.3 ML VIAL SC SCH ×2 (08:54→20:13)
[2022-07-15] MEDS: Senokot S 8.6-50 MG TAB PO PRN (08:54)
[2022-07-15] MEDS: D5 1/2 NS w/20 mEq KCL 1,000 ML IV SCH (08:56)
[2022-07-15] MEDS ORDERED: Polyethylene Glycol 3350 17 GM Packet PO SCH (09:00)
[2022-07-15] MEDS: Electrolyte Replacement Protocol IVPB SCH (09:04)
[2022-07-15] MEDS: Morphine 4 MG/ML VIAL SLOW IVP PRN (10:02)
[2022-07-15] MEDS: HumaLOG 300 UNITS/3 ML VIAL SC PRN ×3 (11:57→20:18)
[2022-07-15] MEDS ORDERED: [UNRECOGNIZED DRUG - REMARK] FS PRN (15:29)
[2022-07-16] MEDS: Ampicillin/Sulbactam 3 GM in Sodium Chloride 0.9% 100 ML IVPB SCH ×4 (02:03→21:05)
[2022-07-16] MEDS: HumaLOG 300 UNITS/3 ML VIAL SC PRN ×3 (05:22→21:06)
[2022-07-16 06:49] LABS: Anion Gap 11 mmol/L (10-20); BUN (Urea Nitrogen) Less than 4 mg/dL (7.0-18.7); Calc. Creatinine Clearance 205 mL/min (70-130); Calcium 8.4 mg/dL (7.8-10.44); Carbon Dioxide 28 mmol/L (22-29); Chloride 104 mmol/L (98-107); Estimated GFR 112; Glucose 199 mg/dL (70-105); Potassium 3.3 mmol/L (3.5-5.1); Sodium 140 mmol/L (136-145)
[2022-07-16] MEDS: Insulin Glargine 30 UNITS/0.3 ML VIAL SC SCH ×2 (08:10→21:04)
[2022-07-16] MEDS: Electrolyte Replacement Protocol IVPB SCH (08:13)
[2022-07-16] MEDS ORDERED: Potassium Chloride 20 MEQ TAB PO SCH (08:15)
[2022-07-16] MEDS: Ondansetron PF 4 MG/2 ML Vial IVP PRN (08:27)
[2022-07-16] MEDS ORDERED: Insulin Glargine 30 UNITS/0.3 ML VIAL SC SCH (08:30)
[2022-07-16] MEDS: Morphine 4 MG/ML VIAL SLOW IVP PRN (09:56)
[2022-07-16] MEDS: Potassium Chloride 20 MEQ in Premix Bag 1 BAG IVPB SCH ×2 (09:59→13:10)
[2022-07-16 13:54] VITALS: BMI 48.9
[2022-07-17] MEDS: Ampicillin/Sulbactam 3 GM in Sodium Chloride 0.9% 100 ML IVPB SCH ×3 (01:52→14:26)
[2022-07-17] MEDS: HumaLOG 300 UNITS/3 ML VIAL SC PRN ×4 (05:29→20:46)
[2022-07-17 07:43] LABS: Anion Gap 14 mmol/L (10-20); BUN (Urea Nitrogen) Less than 4 mg/dL (7.0-18.7); Calc. Creatinine Clearance 201 mL/min (70-130); Calcium 8.5 mg/dL (7.8-10.44); Carbon Dioxide 24 mmol/L (22-29); Chloride 103 mmol/L (98-107); Estimated GFR 111; Glucose 183 mg/dL (70-105); Potassium 3.8 mmol/L (3.5-5.1); Sodium 137 mmol/L (136-145)
[2022-07-17] MEDS: Electrolyte Replacement Protocol IVPB SCH (08:30)
[2022-07-17] MEDS ORDERED: Insulin Glargine 30 UNITS/0.3 ML VIAL SC SCH (09:00)
[2022-07-17] MEDS: Morphine 4 MG/ML VIAL SLOW IVP PRN (09:46)
[2022-07-17] MEDS: Amoxicillin/Potassium Clav 875 MG TAB PO SCH (20:46)
[2022-07-17] MEDS: Insulin Glargine 30 UNITS/0.3 ML VIAL SC SCH (20:46)
[2022-07-18] MEDS: HumaLOG 300 UNITS/3 ML VIAL SC PRN ×3 (06:14→20:10)
[2022-07-18 07:40] LABS: Anion Gap 12 mmol/L (10-20); BUN (Urea Nitrogen) 5 mg/dL (7.0-18.7); Calc. Creatinine Clearance 201 mL/min (70-130); Calcium 8.3 mg/dL (7.8-10.44); Carbon Dioxide 29 mmol/L (22-29); Chloride 102 mmol/L (98-107); Estimated GFR 110; Glucose 213 mg/dL (70-105); Potassium 3.5 mmol/L (3.5-5.1); Sodium 139 mmol/L (136-145)
[2022-07-18] MEDS: Amoxicillin/Potassium Clav 875 MG TAB PO SCH ×2 (08:25→20:11)
[2022-07-18] MEDS: Insulin Glargine 30 UNITS/0.3 ML VIAL SC SCH ×2 (08:26→20:11)
[2022-07-18] MEDS ORDERED: Potassium Chloride 20 MEQ TAB PO SCH (08:30)
[2022-07-18] MEDS: Electrolyte Replacement Protocol IVPB SCH (11:13)
[2022-07-19] MEDS: Morphine 4 MG/ML VIAL SLOW IVP PRN ×2 (02:51→09:54)
[2022-07-19] MEDS: HumaLOG 300 UNITS/3 ML VIAL SC PRN ×4 (04:27→21:34)
[2022-07-19 07:26] LABS: Glucose 190 mg/dL (70-105)
[2022-07-19] MEDS: Amoxicillin/Potassium Clav 875 MG TAB PO SCH ×2 (09:33→21:34)
[2022-07-19] MEDS: Insulin Glargine 30 UNITS/0.3 ML VIAL SC SCH ×2 (09:37→21:34)
[2022-07-19] MEDS ORDERED: Electrolyte Replacement Protocol IVPB PRN (09:39)
[2022-07-19] MEDS ORDERED: Potassium Chloride 20 MEQ TAB PO SCH (09:45)
[2022-07-19] MEDS: Electrolyte Replacement Protocol IVPB SCH (10:12)
[2022-07-19 10:20] LABS: Anion Gap 14 mmol/L (10-20); Calc. Creatinine Clearance 179 mL/min (70-130); Calcium 8.9 mg/dL (7.8-10.44); Carbon Dioxide 28 mmol/L (22-29); Potassium 3.7 mmol/L (3.5-5.1)
[2022-07-19 10:24] LABS: BUN (Urea Nitrogen) 6 mg/dL (7.0-18.7); Chloride 102 mmol/L (98-107); Estimated GFR 107; Sodium 140 mmol/L (136-145)
[2022-07-20] MEDS: Amoxicillin/Potassium Clav 875 MG TAB PO SCH (08:12)
[2022-07-20] MEDS ORDERED: Insulin Glargine 30 UNITS/0.3 ML VIAL SC SCH (09:00)
[2022-07-20] MEDS: Morphine 4 MG/ML VIAL SLOW IVP PRN (09:01)
[2022-07-20 09:37] LABS: Anion Gap 12 mmol/L (10-20); BUN (Urea Nitrogen) 8 mg/dL (7.0-18.7); Calc. Creatinine Clearance 179 mL/min (70-130); Calcium 9.3 mg/dL (7.8-10.44); Carbon Dioxide 28 mmol/L (22-29); Chloride 100 mmol/L (98-107); Estimated GFR 107; Glucose 210 mg/dL (70-105); Potassium 3.6 mmol/L (3.5-5.1); Sodium 136 mmol/L (136-145)
[2022-07-21 02:50] VITALS: BP 151/92; TEMP 98
== END 2022-07-20 11:14 | disposition home or self-care (01) | DRG 853 ==
LOC: ERS 03:19 → IMCU/EMU 08:03 → T4-A 07-12 16:36
PROVIDERS: ADMIT Internal Medicine; ATTEND Family Medicine
PROC: 0JBB0ZZ Excision of Perineum Subcutaneous Tissue and Fascia, Open Approach (ICD-10-PCS; principal; 2022-07-10)
PROC: 3E03329 Introduction of Other Anti-infective into Peripheral Vein, Percutaneous Approach (ICD-10-PCS; 2022-07-10)
DX: A41.9 Sepsis, unspecified organism (principal); E11.10 Type 2 diabetes mellitus with ketoacidosis without coma; L02.215 Cutaneous abscess of perineum; Z68.43 Body mass index [BMI] 50.0-59.9, adult; R65.20 Severe sepsis without septic shock; Z20.822 Contact with and (suspected) exposure to COVID-19; J45.909 Unspecified asthma, uncomplicated; G89.29 Other chronic pain; M54.9 Dorsalgia, unspecified; E66.01 Morbid (severe) obesity due to excess calories; Z88.6 Allergy status to analgesic agent; Z79.4 Long term (current) use of insulin; Z98.51 Tubal ligation status
CPT/HCPCS: 36415; 36416; 71045; 74177; 80048; 80053; 80202; 81003; 81015; 82010; 82805; 83605; 83735; 84100; 84484; 85025; 87040; 87070; 87086; 87205; 93005; 96361; 96365; 96375; 97139; J0295; J0692; J1815; J2270; J2405; J2704; J3010; J3370; J3480; J3490; J7050; Q9967

== ENCOUNTER 2022-11-11 16:07 | Emergency (ER) | payer OTHER | END 2022-11-11 16:57 | disposition home or self-care (01) | LOC: ERS 16:07 | DX: J06.9 Acute upper respiratory infection, unspecified (principal); E11.9 Type 2 diabetes mellitus without complications; E66.9 Obesity, unspecified | CPT/HCPCS: 99283 ==

== ENCOUNTER 2022-12-12 23:20 | Emergency (ER) | payer OTHER ==
[2022-12-13] MEDS ORDERED: Morphine 4 MG/ML VIAL ONE (00:54)
== END 2022-12-13 01:20 | disposition home or self-care (01) ==
LOC: ERS 23:20
DX: S96.912A Strain of unspecified muscle and tendon at ankle and foot level, left foot, initial encounter (principal); E11.9 Type 2 diabetes mellitus without complications; I10 Essential (primary) hypertension; E66.9 Obesity, unspecified
CPT/HCPCS: 96372; J2270

== ENCOUNTER 2023-03-23 12:09 | Outpatient (CLI) | payer OTHER | END 2023-03-23 12:10 | disposition home or self-care (01) | LOC: BICMAMMO 12:09 | PROVIDERS: ATTEND Student in an Organized Health Care Education/Training Program | DX: Z12.31 Encounter for screening mammogram for malignant neoplasm of breast (principal) | CPT/HCPCS: 77063; 77067 ==

== ENCOUNTER 2023-07-03 17:30 | Emergency (ER) | payer OTHER ==
[2023-07-03] MEDS ORDERED: Cyclobenzaprine 10 MG TAB ONE (20:03)
== END 2023-07-03 20:40 | disposition home or self-care (01) ==
LOC: ERS 17:30
DX: M54.50 Low back pain, unspecified (principal); I10 Essential (primary) hypertension; E11.9 Type 2 diabetes mellitus without complications; E66.9 Obesity, unspecified; Z79.84 Long term (current) use of oral hypoglycemic drugs; Z79.4 Long term (current) use of insulin; Z79.899 Other long term (current) drug therapy
CPT/HCPCS: 72100

== ENCOUNTER 2024-06-01 20:52 | Emergency (ER) | payer OTHER ==
[2024-06-01 21:45] LABS: #Basophils 0.04 10x3/uL (0.0-0.2); #Eosinphils Less than 0.03 10x3/uL (0.0-0.7); %Basophils 0.6 % (0.0-1.0); %Eosinophils 0.3 % (0.0-10.0); %Lymphocytes 22.1 % (21.0-51.0); %Monocytes 2.5 % (0.0-10.0); %Neutrophils 74.1 % (42.0-75.0); Hemoglobin 13.6 g/dL (12.0-16.0); Mean Corpuscular Volume 85.3 fL (78.0-98.0); Mean Platelet Volume 10.8 fL (7.4-10.4); Platelet Count 344 10x3/uL (130-400); RBC Distribution Width 13.2 % (11.5-14.5); Red Blood Cell (RBC) Count 4.69 mill/uL (4.20-5.40)
[2024-06-01 22:00] LABS: ALT (SGPT) 22 U/L (8-55); AST (SGOT) 13 U/L (5-34); Albumin 3.6 g/dL (3.5-5.0); Alkaline Phosphatase 99 U/L (40-110); Anion Gap 15 mmol/L (10-20); BUN (Urea Nitrogen) 17 mg/dL (9.8-20.1); Bilirubin, Total 0.4 mg/dL (0.2-1.2); Calc. Creatinine Clearance 0 mL/min (70-130); Calcium 9.9 mg/dL (7.8-10.44); Carbon Dioxide 23 mmol/L (22-29); Chloride 102 mmol/L (98-107); Estimated GFR 89; Globulin 4.3 g/dL (2.4-3.5); Glucose 368 mg/dL (70-105); Potassium 5.2 mmol/L (3.5-5.1); Protein, Total 7.9 g/dL (6.0-8.3); Sodium 135 mmol/L (136-145)
[2024-06-01 23:26] LABS: Phosphorus 3.9 mg/dL (2.3-4.7)
[2024-06-01 23:27] LABS: Magnesium 2.1 mg/dL (1.6-2.6)
[2024-06-01 23:34] LABS: Troponin I Less than 0.010 ng/mL (< 0.028)
[2024-06-01 23:38] LABS: Base Excess -0.8 mEq/L (-2.0 to +3.0); Calcium, Ionized (venous) 1.15 mmol/L (1.16-1.32); Chloride (VBG) 99 mmol/L (98-106); Hematocrit-VBG 43 % (36.0-47.0); Hemoglobin (Hb) 14.6 g/dL (11.7-16.0); Potassium (VBG) 4.58 mmol/L (3.70-5.30); Sodium 136 mmol/L (133-146); pH (venous) 7.427 (7.32-7.43)
== END 2024-06-02 01:05 | disposition home or self-care (01) ==
LOC: ERS 20:52
DX: E11.65 Type 2 diabetes mellitus with hyperglycemia (principal); E87.5 Hyperkalemia; R29.700 NIHSS score 0; I10 Essential (primary) hypertension
CPT/HCPCS: 36415; 36416; 80053; 82010; 82805; 83735; 84100; 84484; 85025; 93005

== ENCOUNTER 2024-10-22 12:29 | Outpatient (CLI) | payer OTHER | END 2024-10-22 12:30 | disposition home or self-care (01) | LOC: BICRAD 12:29 | PROVIDERS: ATTEND Family Medicine | DX: R05.1 Acute cough (principal) | CPT/HCPCS: 71046 ==